=== PATIENT | female | born 1945 | race Caucasian/White ===

== ENCOUNTER 2018-03-12 10:28 | Outpatient (CLI) | payer MEDICARE, OTHER ==
--- NOTE | 2018-03-12 12:24 | CT ---
BRAIN CT WITHOUT CONTRAST: HISTORY: New daily persistent headache for 2 months. COMPARISON: None. CORRELATION: Brain MRI 12/23/14. TECHNIQUE: A brain CT is performed without contrast. Axial images were performed from the skull base to the [facility] vertex. FINDINGS: No parenchymal hemorrhage. No extraaxial hematoma. No midline shift. Basilar cisterns are patent. Brain volume, age appropriate. Cortical brasher-white matter differentiation is preserved. Ventricles and sulci are patent and symmetric. Stable periventricular space lateral to the left lentiform nucleus. This finding is similar to the p revious MRI. Adequate aeration of the sinuses and mastoid air cells. Calvarium is intact. 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 IMPRESSION: No acute intracranial process. POS: HAL
== END 2018-03-12 10:29 | disposition home or self-care (01) ==
LOC: SCSCT 10:28
PROVIDERS: ATTEND Psychiatry & Neurology Neurology
DX: G44.52 New daily persistent headache (NDPH) (principal)
CPT/HCPCS: 70450

== ENCOUNTER 2022-08-22 11:07 | Outpatient (CLI) | payer MEDICARE, OTHER ==
[2022-08-22 12:32] LABS: INR-International Normal Ratio 0.9; PTT 23.9 sec (22.0-33.0); Prothrombin Time 10.1 sec (9.5-12.1)
[2022-08-22 12:33] LABS: Hemoglobin 13.1 g/dL (12.0-15.5); Mean Corpuscular Hemoglobin 29.4 pg (27.0-33.0); Mean Corpuscular Volume 91.9 fl (81.6-98.3); Mean Platelet Volume 10.5 fl (7.4-10.4); Platelet Count 212 10x3/uL (150-450); RBC Distribution Width 14.3 % (11.5-14.5); Red Blood Cell (RBC) Count 4.45 10x6/uL (3.90-5.03); White Blood Cell (WBC) Count 5.4 10x3/uL (3.5-10.5)
[2022-08-22 12:34] LABS: Anion Gap 15 mmol/L (10-20); BUN (Urea Nitrogen) 27 mg/dL (9.8-20.1); Calc. Creatinine Clearance 0 mL/min (70-130); Calcium 9.1 mg/dL (7.8-10.44); Carbon Dioxide 28 mmol/L (23-31); Chloride 105 mmol/L (98-107); Estimated GFR 70; Glucose 89 mg/dL (83-110); Potassium 3.5 mmol/L (3.5-5.1); Sodium 144 mmol/L (136-145)
== END 2022-08-22 11:08 | disposition home or self-care (01) ==
LOC: LABBT 11:07
PROVIDERS: ATTEND Surgery
DX: Z01.812 Encounter for preprocedural laboratory examination (principal); M48.02 Spinal stenosis, cervical region; M47.22 Other spondylosis with radiculopathy, cervical region
CPT/HCPCS: 80048; 85027; 85610; 85730; 93005; 93010

== ENCOUNTER 2022-08-25 11:14 | Observation (INO) | payer MEDICARE, OTHER ==
[2022-08-23 14:50] VITALS: BMI 30.2
[~2022-08-25 11:14] MED LIST: Bupivacaine HCl 0.5%/Epinephrine 1:200,000/PF 30 ml Vial ONE; Dexmedetomidine 200 MCG/2 ML VIAL ONE; Heparin 5,000 UNITS/ML VIAL ONE; Protamine Sulfate 50 MG/5 ML VIAL ONE; fentaNYL PF 100 MCG/2 ML SYRINGE ONE
[2022-08-25] MEDS ORDERED: fentaNYL PF 100 MCG/2 ML SYRINGE ONE (12:21)
[2022-08-25] MEDS ORDERED: Bacitracin Zinc Ointment 30 gm TUBE ONE (12:33)
[2022-08-25] MEDS ORDERED: Sodium Chloride 0.9% 100 ML ONE (12:33)
[2022-08-25] MEDS ORDERED: Thrombin 5000 UNITS/5 ML VIAL ONE (12:33)
[2022-08-25] MEDS ORDERED: CEFAZOLIN 2 GM VIAL ONE (12:33)
[2022-08-25] MEDS ORDERED: ePHEDrine 50 MG/ML VIAL ONE (12:39)
[2022-08-25] MEDS ORDERED: Ondansetron PF 4 MG/2 ML Vial ONE (12:39)
[2022-08-25] MEDS ORDERED: Dexamethasone 20 MG/5 ML VIAL ONE (12:39)
[2022-08-25] MEDS ORDERED: PROPOFOL 200 MG/20 ML VIAL ONE (12:39)
[2022-08-25] MEDS ORDERED: Rocuronium Bromide 10 MG/ML (10ML VIAL) ONE (12:39)
[2022-08-25] MEDS ORDERED: Glycopyrrolate 0.2 MG/ML 5 ML SYRINGE ONE (12:39)
[2022-08-25] MEDS ORDERED: Lidocaine 1% PF 5 ML VIAL ONE (12:39)
[2022-08-25] MEDS ORDERED: NEOSTIGMINE 3 MG/3 ML SYR 3 MG/3 ML SYRINGE ONE (12:39)
[2022-08-25 13:02] LABS: SARS-CoV-2 NAA Rapid Test Not Detected (NotDetected)
[2022-08-25] MEDS ORDERED: Vancomycin 1 GM VIAL ONE (13:34)
[2022-08-25] MEDS ORDERED: Morphine 2 MG/ML VIAL SLOW IVP PRN (14:56)
[2022-08-25] MEDS ORDERED: Ondansetron PF 4 MG/2 ML Vial IVP PRN (14:56)
[2022-08-25] MEDS ORDERED: diphenhydrAMINE 25 MG CAP PO PRN (14:56)
[2022-08-25] MEDS ORDERED: Acetaminophen 325 MG TAB PO PRN (14:56)
[2022-08-25] MEDS ORDERED: traMADol HCl 50 MG TAB PO PRN ×2 (14:56)
[2022-08-25] MEDS ORDERED: tiZANidine HCl 4 MG TAB PO PRN ×2 (14:58→15:48)
[2022-08-25] MEDS ORDERED: hydrALAZINE 20 MG/ML VIAL SLOW IVP PRN (14:58)
[2022-08-25] MEDS ORDERED: Ondansetron HCl/PF 4 MG/2 ML Vial IVP PRN (15:14)
[2022-08-25] MEDS ORDERED: Promethazine HCl 25 MG/ML VIAL IM PRN (15:14)
[2022-08-25] MEDS ORDERED: Fentanyl 100 MCG/2 ML VIAL ONE ×3 (15:16→17:18)
[2022-08-25] MEDS ORDERED: Diazepam 10 MG/2 ML SYRINGE IVP SCH (15:47)
[2022-08-25] MEDS ORDERED: Diazepam 5 MG TAB PO PRN (15:48)
[2022-08-25] MEDS: Sodium Chloride 0.9% 1,000 ML IV SCH (18:06)
[2022-08-25] MEDS ORDERED: Atorvastatin Calcium 10 MG TAB PO SCH (21:00)
[2022-08-25] MEDS: Amantadine HCl 100 mg Capsule PO SCH (21:06)
[2022-08-25] MEDS: Carbidopa/Levodopa 25-100 mg Tablet PO SCH (21:06)
[2022-08-25] MEDS: Gabapentin 300 MG CAP PO SCH (21:06)
[2022-08-25] MEDS: CEFAZOLIN 2 GM in Sodium Chloride 0.9% 100 ML IVPB SCH (21:07)
[2022-08-25] MEDS: HYDROcodone/Acetaminophen 7.5/325 mg Tablet PO PRN (21:07)
[2022-08-26] MEDS: CEFAZOLIN 2 GM in Sodium Chloride 0.9% 100 ML IVPB SCH ×2 (05:20→14:13)
[2022-08-26] MEDS: Sodium Chloride 0.9% 1,000 ML IV SCH (06:36)
[2022-08-26 08:13] VITALS: TEMP 97.6
[2022-08-26] MEDS: Amantadine HCl 100 mg Capsule PO SCH (08:55)
[2022-08-26] MEDS: Carbidopa/Levodopa 25-100 mg Tablet PO SCH (08:55)
[2022-08-26] MEDS: Gabapentin 300 MG CAP PO SCH (08:56)
[2022-08-26] MEDS: HYDROcodone/Acetaminophen 7.5/325 mg Tablet PO PRN (08:57)
[2022-08-26] MEDS ORDERED: Losartan 25 MG TAB PO SCH (09:00)
[2022-08-26] MEDS ORDERED: Calcium Carbonate 500 MG TAB PO SCH (09:00)
[2022-08-26] MEDS ORDERED: Anastrozole 1 MG TAB PO SCH (09:00)
[2022-08-26] MEDS ORDERED: DULoxetine 30 MG CAP PO SCH (09:00)
[2022-08-26] MEDS ORDERED: Multivitamin W/ Minerals 1 TAB PO SCH (09:00)
[2022-08-26] MEDS ORDERED: GLUCOSAMINE HCL 500 MG PO SCH (09:00)
[2022-08-26 12:10] VITALS: BP 108/65
== END 2022-08-26 17:45 | disposition home or self-care (01) ==
LOC: SDC 11:14 → SURG A 17:58
PROVIDERS: ADMIT Surgery; ATTEND Surgery
PROC: 01B Peripheral Nervous System, Excision (ICD-10-PCS; principal; 2022-08-25)
DX: M47.22 Other spondylosis with radiculopathy, cervical region (principal); M54.81 Occipital neuralgia; M06.9 Rheumatoid arthritis, unspecified; M48.02 Spinal stenosis, cervical region; G20 Parkinson's disease; Z79.811 Long term (current) use of aromatase inhibitors; Z79.899 Other long term (current) drug therapy; Z88.5 Allergy status to narcotic agent; Z20.822 Contact with and (suspected) exposure to COVID-19
CPT/HCPCS: 64772; 96374; 96376; C1713 ×2; G0378 ×2; U0002; J1100; J1644; J2405; J2704; J2720; J3010; J3360; J3370; J3371; J3490; J7050